=== PATIENT | female | born 1965 | race Caucasian/White ===

== ENCOUNTER → 2016-12-17 | Outpatient (CLI) | payer BC ==
[2016-07-23 14:08] VITALS: BP 135/80
[~2016-12-17] MED LIST: CALC1POW MC; CYAN10005 PO; GLIM2TAB2 PO; HYDR-2666 PO; LEVO125T PO; LEVO137T3 PO; METF750T2 PO; SAXA1TBM3 PO
--- NOTE | 2016-12-17 09:11 | KCIC ---
Right breast ultrasound: Reason for examination: Followup for possible new density on mammographic screening. Comparison is made to mammographic exams dated 12/03/2016 and 06/21/2016. Ultrasound examination was performed with attention to the upper outer quadrant. There continues to be a nodular density at the 10:00 position 7 centimeters from the nipple measuring 6.6 millimeters in greatest dimension. This appears to contain the biopsy clip. 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 There are no additional nodules identified. No abnormal appearing lymph nodes are seen in the axilla. Impression: Continued presence of a small nodule at the 10 o'clock position corresponding to the biopsy proven fibroadenoma. No other focal lesions evident sonographically. Recommend 6 month follow-up mammograms and ultrasound. BI-RADS category 3: Probably benign. This patient's information has been entered into a reminder system for the patient to be notified with the results of this examination and a target date for her next mammograms. Electronically signed by: Vianey Tomlinson MD (December 17, 2016 09:09:51)
== END | disposition home or self-care (01) ==
LOC: KCIC US 08:06
PROVIDERS: ATTEND Surgery
DX: R92.8 Other abnormal and inconclusive findings on diagnostic imaging of breast (principal)
CPT/HCPCS: 76641